=== PATIENT | male | born 1995 | race Caucasian/White ===

== ENCOUNTER 2017-06-16 15:09 | Outpatient (CLI) | payer BC, OTHER ==
--- NOTE | 2017-06-16 19:07 | MRI ---
LEFT ANKLE MRI WITHOUT IV CONTRAST: History: 21-year-old male with left ankle pain following an injury 2.5 weeks ago during a football game. Technique: Multiplanar, multisequence MRI examination of the left ankle is performed. FINDINGS: There is complete disruption of the anterior tibial fibular or syndesmotic ligament. There is also ev idence for strain with some high signal involving the posterior syndesmotic ligament as well as some disruption of the distal tibial fibular inner osseous membrane, evidence for a high ankle sprain. The re is some focal abnormal marrow edema involving the distal posterior tibia consistent with subcortic al nondisplaced fracture/infraction. There is some abnormal joint effusion. In the anterior tibiotala r joint there is a very irregularly shaped abnormal T1 and T2 hypointense body that is very irregular ly shaped and measuring approximately 1.5 cm transversely and approximately 1-2 mm in thickness. Ther e is some minimal focal abnormal subcortical marrow edema involving the posterior lateral aspect of t he lateral talus as well as the anterior portion of the distal fibula, possibly related to kissing ty pe contusions. There is some minimal increased signal in the fibular attachment of the anterior tibio fibular ligament but there do appear to be fibers intact. The posterior tibiofibular ligament and sissy caneal fibular ligament regions appear unremarkable. There is some minimal fluid within the distal po sterior tibialis tendon sheath, evidence for some synovitis. IMPRESSION: Complete disruption of the anterior tibial fibular ligament/anterior syndesmotic ligament with strain of the posterior syndesmotic ligament as well as disruption of the distal tibial fibular inner osseo us membrane, evidence for high ankle sprain. Subcortical marrow signal of the posterior tibial epiphy sis region, evidence for a subcortical fracture/infraction. Small focal areas of marrow edema involvi ng the anterior aspect of the distal fibula as well as the posterior aspect of the lateral talus, pro bably related to kissing type contusions. Some type of irregularly shaped, somewhat elongated thin fo sissy area of T1 and T2 hypointensity within the anterior distal tibial talar joint, possibly some type of elongated intraarticular body. Mild straining of the anterior talar fibular ligament but there ar e ligamental fibers which are intact. Lateral soft tissue swelling. Small amount of fluid within the distal posterior tibialis tendon sheath. POS: [facility]
== END 2017-06-16 15:10 | disposition home or self-care (01) ==
LOC: SCSMRI 15:09
PROVIDERS: ATTEND Orthopaedic Surgery
DX: S93.432A Sprain of tibiofibular ligament of left ankle, initial encounter (principal)